=== PATIENT | male | born 1995 | race Two or more races ===

== ENCOUNTER 2017-12-03 00:36 | Emergency (ER) | payer OTHER ==
[2017-12-03 00:48] VITALS: BP 151/99; PULSE 76; TEMP 97.5; BMI 19.4
--- NOTE | 2017-12-03 00:57 | PDOC ---
History of Present Illness - General Chief Complaint: Pain Stated Complaint: PAIN LT SIDE OF HEAD Time Seen by Provider: 12/03/17 00:55 History Source: Patient Exam Limitations: No Limitations - History of Present Illness Initial Comments: 12/03/17 00:58 pt presents to the ED complaining of a several month history of intermittent left sided headaches. Pain is throbbing, moderate in intensity and occurs only when he awakens from sleep. Pain always lasts for about 30 minutes. Denies fever, nausea or vomiting or visual complaints. Pain is relieved with advil. Nothing worsens the headache. No prior headache history. Headaches have been gradually increasing in frequency and now occur every other day. 12/03/17 01:01 Past History - Past Medical History Allergies/Adverse Reactions: Allergies Allergy/AdvReac Type Severity Reaction Status Date / Time No Known Allergies Allergy Unverified 12/03/17 00:37 Home Medications: Ambulatory Orders NK [No Known Home Medication] 12/03/17 Asthma: Yes (PREVIOUSLY) COPD: No - Suicide/Smoking/Psychosocial Hx Smoking History: Never smoked Review of Systems - Review of Systems Is the patient limited Hungarian proficient: No Constitutional: No: Symptoms Reported, See HPI, Chills, Diaphoresis, Fever, Loss of Appetite, Malaise, Night Sweats, Weakness, Weight Stable, Unintentional Wgt. Loss, Unexplained wgt Loss, Other HEENTM: No: Symptoms Reported, See HPI, Eye Pain, Blurred Vision, Tearing, Recent change in vision, Double Vision, Cataracts, Ear Pain, Ocular Prothesis, Ear Discharge, Nose Pain, Nose Congestion, Tinnitus, Nose Bleeding, Hearing Loss , Throat Pain, Throat Swelling, Mouth Pain, Dental Problems, Difficulty Swallowing, Mouth Swelling, Other Respiratory: No: Symptoms reported, See HPI, Cough, Orthopnea, Shortness of Breath, SOB with Exertion, SOB at Rest, Stridor, Wheezing, Productive cough, Hemoptysis, Other Cardiac (ROS): No: Symptoms Reported, See HPI, Chest Pain, Edema, Irregular Heart Rate, Lightheadedness, Palpitations, Syncope, Chest Tightness, Other ABD/GI: No: Symptoms Reported, See HPI, Abdominal Distended, Abd. Pain w/ defecation, Blood Streaked Bowels, Constipated, Diarrhea, Difficulty Swallowing , Nausea, Poor Appetite, Poor Fluid Intake, Rectal Bleeding, Vomiting, Indigestion, Abdominal cramping, Tarry Stools, Other : No: Symptoms Reported, See HPI, Burning, Dysuria, Discharge, Frequency, Flank Pain, Hematuria, Incontinence, Pain, Urgency, Testicular Mass, Testicular Swelling, Lesions, Testicular Pain, Other Musculoskeletal: No: Symptoms Reported, See HPI, Back Pain, Gout, Joint Pain, Joint Swelling, Muscle Pain, Muscle Weakness, Neck Pain, Joint Stiffness, Other Neurological: Yes: Headache. No: Symptoms reported, See HPI, Numbness, Paresthesia, Pre-Existing Deficit, Seizure, Tingling, Tremors, Weakness, Unsteady Gait, Ataxia, Dizziness, Other All Other Systems: Reviewed and Negative *Physical Exam - Vital Signs Last Vital Signs Temp Pulse Resp BP Pulse Ox 97.5 F L 76 16 151/99 98 12/03/17 00:40 12/03/17 00:40 12/03/17 00:40 12/03/17 00:40 12/03/17 00:40 - Physical Exam General Appearance: Yes: Nourished, Appropriately Dressed. No: Apparent Distress, Disheveled, Mild Distress, Moderate Distress, Severe Distress, Alcohol on Breath, Intoxicated, Cachetic, Obese, Thin, Other HEENT: positive: EOMI, SCOTT, Normal ENT Inspection Neck: positive: Supple Respiratory/Chest: positive: Lungs Clear, Normal Breath Sounds. negative: Chest Tender, Respiratory Distress, Accessory Muscle Use, Labored Respiration, Rapid RR, Decreased Breath Sounds, Paradoxal Breathing, Crackles, Rales, Rhonchi , Stridor, Wheezing Cardiovascular: positive: Regular Rhythm, Regular Rate, S1, S2 Gastrointestinal/Abdominal: positive: Flat, Soft. negative: Normal Bowel Sounds , Tender, Organomegaly, Pulsatile Mass, Increased Bowel Sounds, Decreased BS, Protuberent, Distended, Guarding, Rebound, Tenderness, Hernia, Mass, Hepatomegaly, Spleenomegaly, Other Musculoskeletal: positive: Normal Inspection Extremity: positive: Normal Inspection Integumentary: positive: Normal Color, Dry, Warm Neurologic: positive: pododermatologist II-XII NML intact, Fully Oriented, Alert, Normal Mood/ Affect, Normal Response, Motor Strength 5/5 Medical Decision Making - Medical Decision Making 12/03/17 00:55 pt presents to the ED complaining of a several month history of gradual onset left sided headaches. No findings suggestive of subarachnoid. Will discharge home and refer to primary care. *DC/Admit/Observation/Transfer Diagnosis at time of Disposition: Headache Qualifiers: Headache type: new daily persistent Qualified Code(s): G44.52 - New daily persistent headache (NDPH) - Discharge Dispostion Disposition: HOME Condition at time of disposition: Stable Admit: No - Referrals Referrals: Jayden Kelley MD [Staff Physician] - - Patient Instructions Printed Discharge Instructions: DI for Headache Additional Instructions: return to the ED for severe headaches, headaches with vomiting or confusion, new or changing symptoms. - Post Discharge Activity
== END 2017-12-03 01:02 | disposition home or self-care (01) ==
LOC: FER 00:36
DX: G44.52 New daily persistent headache (NDPH) (principal); J45.909 Unspecified asthma, uncomplicated
CPT/HCPCS: 99281-25

== ENCOUNTER 2018-08-13 21:04 | Emergency (ER) | payer OTHER ==
[2018-08-13 21:07] VITALS: BP 125/73; PULSE 86; TEMP 98.1; BMI 20.7
[2018-08-13] MEDS ORDERED: IBUPROFEN 400 MG TABLET (FP) PO ONE ×2 (21:52)
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
== END 2018-08-13 22:28 | disposition home or self-care (01) ==
LOC: JERFT 21:04
DX: S50.02XA Contusion of left elbow, initial encounter (principal); M79.602 Pain in left arm; V18.0XXA Pedal cycle driver injured in noncollision transport accident in nontraffic accident, initial encounter; Y93.55 Activity, bike riding; Y92.410 Unspecified street and highway as the place of occurrence of the external cause
CPT/HCPCS: 73060-TC-LT-FY; 73070-TC-LT-FY; 99281-25